=== PATIENT | male | born 1990 | race African-American/Black ===

== ENCOUNTER 2024-07-25 15:31 | Inpatient (IN) | payer MEDICAID, OTHER ==
[~2024-07-25] VITALS: Ht 160 cm; Wt 57.3 kg
[~2024-07-25 15:31] MED LIST: CLOZ100T12 PO; DIVA-153 PO; DIVA500T69 PO; QUET300T2 PO
[2024-07-25 17:00] VITALS: O2SAT 97
[2024-07-25 17:06] LABS: BASOPHILS % (AUTO) 0.8 % (0.0-2.0); EOSINOPHILS % (AUTO) 3.3 % (1.0-6.0); HEMATOCRIT 38.5 % (41-53); HEMOGLOBIN 12.4 g/dL (13.5-17.5); LYMPHOCYTES # (AUTO) 2.9 K/uL (1.0-4.8); LYMPHOCYTES % (AUTO) 47.3 % (22.0-44.0); MEAN CORPUSCULAR HGB CONC 32.2 G/dL (31.0-37.0); MEAN CORPUSCULAR VOLUME 72 fL (80-100); MONOCYTES # (AUTO) 0.5 K/uL (0.1-1.0); MONOCYTES % (AUTO) 7.7 % (2.0-9.0); NEUTROPHILS # (AUTO) 2.5 K/uL (1.8-7.7); NEUTROPHILS % (AUTO) 40.9 % (40.0-70.0); PLATELET COUNT (AUTO) 402 K/uL (150-450); RED BLOOD CELL COUNT(AUTO) 5.38 MIL/uL (4.50-5.90); RED CELL DISTRIBUTION WIDTH 15.1 % (11.5-14.5); WHITE BLOOD COUNT (AUTO) 6.1 K/uL (4.5-11.0)
[2024-07-25 17:09] LABS: COVID AG,FIA SOURCE NASAL SWAB
[2024-07-25 17:17] LABS: ANION GAP 9 mmol/L (8-16); CALCIUM, TOTAL 9.6 mg/dL (8.8-10.5); CARBON DIOXIDE 29 mmol/L (22-29); CHLORIDE 104 mmol/L (98-107); CREATININE 0.97 mg/dL (0.60-1.30); GLOMERULAR FILTR. RATE CALC > 60 mL/min (>60); GLUCOSE,RANDOM 212 mg/dL (70-110); POTASSIUM 3.9 mmol/L (3.5-5.1); SODIUM SERUM 142 mmol/L (136-145); UREA NITROGEN, BLOOD 5 mg/dL (7-18)
[2024-07-25 17:28] LABS: SARS-COV2 (COVID) ANTIGEN,FIA Negative (Negative)
[2024-07-25] MEDS ORDERED: BETA15CR TP (17:31)
[2024-07-25] MEDS ORDERED: TRAZ-252 PO (17:31)
[2024-07-25] MEDS ORDERED: INSU100I94 SQ (17:31)
[2024-07-25] MEDS ORDERED: KETO120S13 TP (17:31)
[2024-07-25] MEDS ORDERED: METO25 PO (17:31)
[2024-07-25] MEDS ORDERED: LITH600C PO (17:31)
[2024-07-25] MEDS ORDERED: QUET200T30 PO (17:31)
[2024-07-25] MEDS ORDERED: METF-446 PO (17:31)
[2024-07-25 17:32] LABS: RBC MORPHOLOGY COMMENT ABNORMAL RBC MORPH
[2024-07-25 18:10] LABS: ALCOHOL, BLOOD (SERUM) < 3 mg/dL (0-10)
[2024-07-25] MEDS ORDERED: CLOZ25TA52 PO (18:21)
[2024-07-25 18:39] LABS: ALCOHOL, URINE DRUG SCREEN NEGATIVE (NEGATIVE); AMPHET/METH SCREEN,URINE POSITIVE (NEGATIVE); BARBITURATE SCREEN, URINE NEGATIVE (NEGATIVE); BENZODIAZEPINES SCREEN,URINE NEGATIVE (NEGATIVE); CANNABINOID SCREEN,URINE POSITIVE (NEGATIVE); COCAINE SCREEN,URINE NEGATIVE (NEGATIVE); METHADONE SCREEN, URINE NEGATIVE (NEGATIVE); OPIATE SCREEN,URINE NEGATIVE (NEGATIVE); PHENCYCLIDINE SCREEN,URINE NEGATIVE (NEGATIVE)
[2024-07-25] MEDS: LORazepam 1 MG TABLET PO ONE (18:42)
[2024-07-25] MEDS: ACETAMINOPHEN 325 MG TABLET PO ONE (18:59)
[2024-07-25] MEDS ORDERED: LORazepam 2 MG TABLET PO PRN (19:00)
[2024-07-25] MEDS ORDERED: HALOPERIDOL 5 MG TABLET PO PRN (19:00)
[2024-07-25 23:30] VITALS: RESP 16
[2024-07-25] MEDS ORDERED: DEXTROSE 50%-WATER 25 GM/50 ML SYRINGE IVP PRN (23:30)
[2024-07-25] MEDS ORDERED: INSULIN LISPRO 100 UNITS/ML SQ PRN (23:30)
[2024-07-25] MEDS ORDERED: GLUCAGON,HUMAN RECOMBINANT 1 MG VIAL IM PRN (23:45)
[2024-07-26 08:07] VITALS: BP 129/97; PULSE 89; RESP 18; TEMP 98.2; O2SAT 95
[2024-07-26] MEDS ORDERED: MAGNESIUM HYDROXIDE SUSPENSION 30 ML UDCUP PO PRN (09:30)
[2024-07-26] MEDS ORDERED: DOCUSATE SODIUM 100 MG CAPSULE PO PRN (09:30)
[2024-07-26] MEDS ORDERED: ONDANSETRON 4 MG TABLET PO PRN (09:30)
[2024-07-26] MEDS ORDERED: LOPERAMIDE HCL 2 MG CAPSULE PO PRN (09:30)
[2024-07-26] MEDS ORDERED: GuaiFENesin/D-METHORPHAN [SUGAR-FREE] 200-20MG/10 ML SYRUP UDCUP PO PRN (09:30)
[2024-07-26] MEDS ORDERED: ALBUTEROL SULFATE HFA 90 MCG/PUFF 8 GM INHALER IH PRN (09:30)
[2024-07-26] MEDS: INSULIN LISPRO 100 UNITS/ML SQ PRN (11:14)
[2024-07-26 11:31] LABS: GLUCOMETER DEV NAME(LOC) BV2S.; GLUCOSE,POINT OF CARE 261 MG/DL (70-110)
[2024-07-26] MEDS: LITHIUM CARBONATE 300 MG ER TABLET PO SCH (13:20)
[2024-07-26] MEDS: DiphenhydrAMINE HCL 50 MG/ML VIAL IM ONE (13:21)
[2024-07-26] MEDS: LORazepam 2 MG/ML VIAL IM ONE (13:22)
[2024-07-26] MEDS: HALOPERIDOL LACTATE 5 MG/ML VIAL IM ONE (13:24)
[2024-07-26 15:00] VITALS: BP 139/93; PULSE 98; RESP 18; TEMP 98; O2SAT 100
[2024-07-26] MEDS: CloZAPine 25 MG TABLET PO SCH (16:27)
[2024-07-26] MEDS: MetFORMIN HCL 500 MG TABLET PO SCH (16:28)
[2024-07-26] MEDS: METOPROLOL TARTRATE 25 MG TABLET PO SCH (16:29)
[2024-07-26] MEDS: QUEtiapine FUMARATE 200 MG TABLET PO SCH (16:30)
[2024-07-26 17:06] LABS: GLUCOMETER DEV NAME(LOC) BV3N.2; GLUCOSE,POINT OF CARE 246 MG/DL (70-110)
[2024-07-26 20:00] VITALS: RESP 18
[2024-07-26] MEDS: TraZODone HCL 50 MG TABLET PO SCH (20:24)
[2024-07-26] MEDS: CloZAPine 100 MG TABLET PO SCH (20:25)
[2024-07-26] MEDS: DIVALPROEX SODIUM 500 MG ER TABLET PO SCH (20:25)
[2024-07-26] MEDS: INSULIN GLARGINE,HUM.REC.ANLOG 100 UNITS/ML SQ SCH (20:39)
[2024-07-26] MEDS: ZOLPIDEM TARTRATE 10 MG TABLET PO PRN (20:47)
[2024-07-26 20:55] LABS: GLUCOMETER DEV NAME(LOC) BV3N.2; GLUCOSE,POINT OF CARE 198 MG/DL (70-110)
[2024-07-27 06:50] LABS: GLUCOMETER DEV NAME(LOC) BV3N.2; GLUCOSE,POINT OF CARE 159 MG/DL (70-110)
[2024-07-27 09:30] LABS: HEMOGLOBIN A1C 7.3 % (3.8-5.6)
[2024-07-27 09:53] LABS: CHOL/HDL RATIO 2.7 (4.2-7.3); FREE T4 (FREE THYROXINE) 1.02 ng/dL (0.76-1.46)
[2024-07-27] MEDS: PETROLATUM,WHITE 28 GM JELLY TP PRN (09:59)
[2024-07-27] MEDS: NICOTINE 14 MG/24 HOUR PATCH TD PRN (10:02)
[2024-07-27 10:17] LABS: THYROID STIMULATING HORMONE 0.11 uIU/mL (0.36-3.74)
[2024-07-27 16:00] VITALS: BP 125/79; PULSE 100; RESP 18; TEMP 97.7; O2SAT 95
[2024-07-27 17:00] LABS: GLUCOMETER DEV NAME(LOC) BV3N.2; GLUCOSE,POINT OF CARE 225 MG/DL (70-110)
[2024-07-27 17:00] LABS: GLUCOMETER DEV NAME(LOC) BV3N.2; GLUCOSE,POINT OF CARE 222 MG/DL (70-110)
[2024-07-27] MEDS: MAG HYDROX/ALUMINUM HYD/SIMETH ES 30 ML SUSPENSION UDCUP PO PRN (17:05)
[2024-07-27 20:15] VITALS: RESP 18
[2024-07-27 20:50] LABS: GLUCOMETER DEV NAME(LOC) BV3N.2; GLUCOSE,POINT OF CARE 153 MG/DL (70-110)
[2024-07-28 06:06] LABS: HEPATITIS C AB (EIA) Non Reactive (Non Reactive)
[2024-07-28 06:41] LABS: GLUCOMETER DEV NAME(LOC) BV3N.2; GLUCOSE,POINT OF CARE 127 MG/DL (70-110)
[2024-07-28 09:17] VITALS: BP 116/59; PULSE 93; RESP 18; TEMP 97.2; O2SAT 96
[2024-07-28 09:24] VITALS: RESP 16
[2024-07-28] MEDS: ACETAMINOPHEN 325 MG TABLET PO PRN (09:24)
[2024-07-28 10:24] VITALS: RESP 16
[2024-07-28 11:31] LABS: GLUCOMETER DEV NAME(LOC) BV3N.2; GLUCOSE,POINT OF CARE 284 MG/DL (70-110)
[2024-07-28 16:00] VITALS: BP 129/75; PULSE 63; RESP 18; TEMP 97.6
[2024-07-28 16:41] LABS: GLUCOMETER DEV NAME(LOC) BV3N.2; GLUCOSE,POINT OF CARE 315 MG/DL (70-110)
[2024-07-28 19:41] LABS: GLUCOMETER DEV NAME(LOC) BV3N.2; GLUCOSE,POINT OF CARE 126 MG/DL (70-110)
[2024-07-28 20:58] VITALS: BP 126/64; PULSE 93; RESP 16; TEMP 97.7; O2SAT 98
[2024-07-29 06:30] LABS: GLUCOMETER DEV NAME(LOC) BV3N.2; GLUCOSE,POINT OF CARE 265 MG/DL (70-110)
[2024-07-29 08:29] VITALS: BP 108/62; PULSE 98; RESP 16; TEMP 98; O2SAT 98
[2024-07-29 08:40] LABS: APPEARANCE,URINE CLEAR (CLEAR); BILIRUBIN,URINE NEGATIVE (NEGATIVE); COLOR,URINE LIGHT YELLOW (YELLOW); GLUCOSE, URINE (UA) >=1000 mg/dL (NEGATIVE); KETONES,URINE NEGATIVE (NEGATIVE); LEUKOCYTE ESTERASE ,URINE NEGATIVE (NEGATIVE); NITRATE,URINE NEGATIVE (NEGATIVE); OCCULT BLOOD,URINE NEGATIVE (NEGATIVE); PROTEIN,URINE NEGATIVE (NEGATIVE); SPECIFIC GRAVITIY, URINE 1.011 (1.003-1.030); UROBILINOGEN,URINE <=1.0 mg/dL (<=1.0)
[2024-07-29 09:03] LABS: BACTERIA,URINE None Seen /HPF (None Seen); RBC,URINE None Seen /HPF (0-2); SQUAMOUS EPITHELIAL CELL,UR Rare /LPF (None Seen); WBC,URINE None Seen /HPF (0-5)
[2024-07-29 16:36] LABS: GLUCOMETER DEV NAME(LOC) BV3N.2; GLUCOSE,POINT OF CARE 320 MG/DL (70-110)
[2024-07-29 16:36] LABS: GLUCOMETER DEV NAME(LOC) BV3N.2; GLUCOSE,POINT OF CARE 284 MG/DL (70-110)
[2024-07-29 19:46] LABS: GLUCOMETER DEV NAME(LOC) BV3N.2; GLUCOSE,POINT OF CARE 181 MG/DL (70-110)
[2024-07-29 20:03] VITALS: BP 135/76; PULSE 94; RESP 17; TEMP 98.3; O2SAT 95
[2024-07-30 06:25] LABS: GLUCOMETER DEV NAME(LOC) BV3N.2; GLUCOSE,POINT OF CARE 199 MG/DL (70-110)
[2024-07-30 08:22] VITALS: BP 116/69; RESP 15; TEMP 98; O2SAT 97
[2024-07-30 16:40] LABS: GLUCOMETER DEV NAME(LOC) BV3N.2; GLUCOSE,POINT OF CARE 333 MG/DL (70-110)
[2024-07-30 20:14] VITALS: BP 114/56; PULSE 79; RESP 16; TEMP 97.4; O2SAT 97
[2024-07-30 21:00] LABS: GLUCOMETER DEV NAME(LOC) BV3N.2; GLUCOSE,POINT OF CARE 232 MG/DL (70-110)
[2024-07-31 06:20] LABS: GLUCOMETER DEV NAME(LOC) BV3N.2; GLUCOSE,POINT OF CARE 187 MG/DL (70-110)
[2024-07-31 08:08] LABS: LITHIUM 0.28 mmol/L (0.60-1.20)
[2024-07-31 08:32] VITALS: BP 118/66; RESP 16; TEMP 97.6; O2SAT 97
[2024-07-31 11:56] LABS: GLUCOMETER DEV NAME(LOC) BV3N.2; GLUCOSE,POINT OF CARE 290 MG/DL (70-110)
[2024-07-31] MEDS ORDERED: TUBERCULIN, PURIFIED PROTEIN DERIVATIVE 5 TU/0.1 ML SYRINGE ID ONE (13:30)
[2024-07-31 17:01] LABS: GLUCOMETER DEV NAME(LOC) BV3N.2; GLUCOSE,POINT OF CARE 229 MG/DL (70-110)
[2024-07-31 21:21] LABS: GLUCOMETER DEV NAME(LOC) BV3N.2; GLUCOSE,POINT OF CARE 194 MG/DL (70-110)
[2024-08-01 06:46] LABS: GLUCOMETER DEV NAME(LOC) BV3N.2; GLUCOSE,POINT OF CARE 201 MG/DL (70-110)
[2024-08-01 09:13] VITALS: BP 113/60; PULSE 108; RESP 17; TEMP 97.8; O2SAT 96
[2024-08-01 11:50] LABS: GLUCOMETER DEV NAME(LOC) BV3N.2; GLUCOSE,POINT OF CARE 291 MG/DL (70-110)
[2024-08-01 16:10] VITALS: BP 128/68; PULSE 64; RESP 18; O2SAT 98
[2024-08-01 16:40] LABS: GLUCOMETER DEV NAME(LOC) BV3N.2; GLUCOSE,POINT OF CARE 330 MG/DL (70-110)
[2024-08-01] MEDS: TUBERCULIN, PURIFIED PROTEIN DERIVATIVE 5 TU/0.1 ML SYRINGE ID ONE (17:00)
[2024-08-01 20:10] VITALS: BP 104/53; PULSE 94; RESP 18; TEMP 98; O2SAT 98
[2024-08-01 21:00] LABS: GLUCOMETER DEV NAME(LOC) BV3N.2; GLUCOSE,POINT OF CARE 209 MG/DL (70-110)
[2024-08-02 06:36] LABS: GLUCOMETER DEV NAME(LOC) BV3N.2; GLUCOSE,POINT OF CARE 208 MG/DL (70-110)
[2024-08-02 08:05] VITALS: BP 122/65; PULSE 76; RESP 16; TEMP 98.5; O2SAT 96
[2024-08-02 11:30] LABS: GLUCOMETER DEV NAME(LOC) BV3N.2; GLUCOSE,POINT OF CARE 239 MG/DL (70-110)
[2024-08-02 17:00] LABS: GLUCOMETER DEV NAME(LOC) BV3N.2; GLUCOSE,POINT OF CARE 329 MG/DL (70-110)
[2024-08-02 20:10] VITALS: BP 129/86; PULSE 92; RESP 18; TEMP 97.3
[2024-08-03 07:10] LABS: GLUCOMETER DEV NAME(LOC) BV3N.2; GLUCOSE,POINT OF CARE 187 MG/DL (70-110)
[2024-08-03 07:10] LABS: GLUCOMETER DEV NAME(LOC) BV3N.2; GLUCOSE,POINT OF CARE 224 MG/DL (70-110)
[2024-08-03 08:09] VITALS: BP 103/60; PULSE 91; RESP 17; TEMP 97.4; O2SAT 99
[2024-08-03 11:31] LABS: GLUCOMETER DEV NAME(LOC) BV3N.2; GLUCOSE,POINT OF CARE 326 MG/DL (70-110)
[2024-08-03 20:36] VITALS: BP 117/64; PULSE 97; RESP 18; TEMP 97.2; O2SAT 97
[2024-08-03 22:21] LABS: GLUCOMETER DEV NAME(LOC) BV3N.2; GLUCOSE,POINT OF CARE 243 MG/DL (70-110)
[2024-08-04 06:30] LABS: GLUCOMETER DEV NAME(LOC) BV3N.2; GLUCOSE,POINT OF CARE 206 MG/DL (70-110)
[2024-08-04 08:02] VITALS: RESP 15
[2024-08-04] MEDS: QUEtiapine FUMARATE 300 MG TABLET PO SCH (08:14)
[2024-08-04 15:20] VITALS: RESP 15
[2024-08-04 17:25] LABS: GLUCOMETER DEV NAME(LOC) BV3N.2; GLUCOSE,POINT OF CARE 243 MG/DL (70-110)
[2024-08-04 17:25] LABS: GLUCOMETER DEV NAME(LOC) BV3N.2; GLUCOSE,POINT OF CARE 346 MG/DL (70-110)
[2024-08-04 20:24] VITALS: BP 129/68; PULSE 95; RESP 18; TEMP 98
[2024-08-04 21:00] LABS: GLUCOMETER DEV NAME(LOC) BV3N.2; GLUCOSE,POINT OF CARE 99 MG/DL (70-110)
[2024-08-05 07:15] LABS: GLUCOMETER DEV NAME(LOC) BV3N.2; GLUCOSE,POINT OF CARE 242 MG/DL (70-110)
[2024-08-05 08:17] LABS: PLATELET COUNT (AUTO) 368 K/uL (150-450)
[2024-08-05 08:29] VITALS: BP 118/60; PULSE 95; RESP 17; TEMP 97.7; O2SAT 100
[2024-08-05 08:36] LABS: HEMATOCRIT 37.7 % (41-53); HEMOGLOBIN 12.2 g/dL (13.5-17.5); MEAN CORPUSCULAR HGB CONC 32.2 G/dL (31.0-37.0); MEAN CORPUSCULAR VOLUME 71 fL (80-100); RED BLOOD CELL COUNT(AUTO) 5.29 MIL/uL (4.50-5.90); RED CELL DISTRIBUTION WIDTH 15.5 % (11.5-14.5); WHITE BLOOD COUNT (AUTO) 8.9 K/uL (4.5-11.0)
[2024-08-05 10:07] LABS: BAND NEUTROPHILS % (MANUAL) 1 % (0-5); LYMPHOCYTES % (MANUAL) 32 % (22-44); MONOCYTES % (MANUAL) 8 % (2-9); SEGMENTED NEUTROPHILS % 59 % (40-70); TOTAL CELLS COUNTED 100
[2024-08-05 11:40] LABS: GLUCOMETER DEV NAME(LOC) BV3N.2; GLUCOSE,POINT OF CARE 264 MG/DL (70-110)
[2024-08-05 17:51] LABS: GLUCOMETER DEV NAME(LOC) BV3N.2; GLUCOSE,POINT OF CARE 314 MG/DL (70-110)
[2024-08-05 20:32] VITALS: BP 120/63; PULSE 88; RESP 18; TEMP 98.1; O2SAT 96
[2024-08-05 21:50] LABS: GLUCOMETER DEV NAME(LOC) BV3N.2; GLUCOSE,POINT OF CARE 285 MG/DL (70-110)
[2024-08-06 06:41] LABS: GLUCOMETER DEV NAME(LOC) BV3N.2; GLUCOSE,POINT OF CARE 211 MG/DL (70-110)
[2024-08-06 08:42] VITALS: BP 116/67; PULSE 100; RESP 18; TEMP 97.5; O2SAT 97
[2024-08-06 12:00] LABS: GLUCOMETER DEV NAME(LOC) BV3N.2; GLUCOSE,POINT OF CARE 246 MG/DL (70-110)
[2024-08-06 17:20] LABS: GLUCOMETER DEV NAME(LOC) BV3N.2; GLUCOSE,POINT OF CARE 272 MG/DL (70-110)
[2024-08-06 20:03] VITALS: BP 117/65; PULSE 87; RESP 17; TEMP 98.7
[2024-08-06 21:10] LABS: GLUCOMETER DEV NAME(LOC) BV2S.; GLUCOSE,POINT OF CARE 152 MG/DL (70-110)
[2024-08-07 08:23] VITALS: RESP 18
[2024-08-07 09:00] VITALS: BP 113/69; PULSE 100; RESP 18; TEMP 97.4
[2024-08-07 09:07] LABS: CALCIUM, TOTAL 9.5 mg/dL (8.8-10.5); CARBON DIOXIDE 28 mmol/L (22-29); CREATININE 0.76 mg/dL (0.60-1.30); GLOMERULAR FILTR. RATE CALC > 60 mL/min (>60); GLUCOSE,RANDOM 159 mg/dL (70-110); UREA NITROGEN, BLOOD 10 mg/dL (7-18)
[2024-08-07 09:40] LABS: ANION GAP 6 mmol/L (8-16); CHLORIDE 104 mmol/L (98-107); POTASSIUM 4.7 mmol/L (3.5-5.1); SODIUM SERUM 138 mmol/L (136-145)
[2024-08-07 11:45] LABS: GLUCOMETER DEV NAME(LOC) BV2S.; GLUCOSE,POINT OF CARE 198 MG/DL (70-110)
[2024-08-07] MEDS: CloZAPine 100 MG TABLET PO SCH (16:46)
[2024-08-07 17:00] LABS: GLUCOMETER DEV NAME(LOC) BV2S.; GLUCOSE,POINT OF CARE 173 MG/DL (70-110)
[2024-08-07 20:18] VITALS: BP 118/60; PULSE 92; RESP 16; TEMP 98.4; O2SAT 96
[2024-08-07 20:40] LABS: GLUCOMETER DEV NAME(LOC) BV2S.; GLUCOSE,POINT OF CARE 174 MG/DL (70-110)
[2024-08-08 08:59] VITALS: BP 108/58; PULSE 93; RESP 17; TEMP 98.6; O2SAT 98
[2024-08-08 12:10] LABS: GLUCOMETER DEV NAME(LOC) BV2S.; GLUCOSE,POINT OF CARE 218 MG/DL (70-110)
[2024-08-08 16:50] LABS: GLUCOMETER DEV NAME(LOC) BV2S.; GLUCOSE,POINT OF CARE 206 MG/DL (70-110)
[2024-08-08 20:30] VITALS: BP 128/74; PULSE 80; RESP 16; TEMP 99.7; O2SAT 97
[2024-08-08 20:50] VITALS: RESP 16; O2SAT 97
[2024-08-08 21:05] LABS: GLUCOMETER DEV NAME(LOC) BV2S.; GLUCOSE,POINT OF CARE 145 MG/DL (70-110)
[2024-08-09 06:26] LABS: GLUCOMETER DEV NAME(LOC) BV2S.; GLUCOSE,POINT OF CARE 142 MG/DL (70-110)
[2024-08-09 12:21] LABS: GLUCOMETER DEV NAME(LOC) BV2S.; GLUCOSE,POINT OF CARE 187 MG/DL (70-110)
[2024-08-09 13:24] VITALS: BP 119/74; PULSE 73; RESP 17; TEMP 97.4; O2SAT 96
[2024-08-09 17:01] VITALS: BP 104/61; PULSE 99; RESP 18
[2024-08-09 17:21] LABS: GLUCOMETER DEV NAME(LOC) BV2S.; GLUCOSE,POINT OF CARE 192 MG/DL (70-110)
[2024-08-09 20:25] VITALS: BP 108/65; PULSE 99; RESP 18; TEMP 97.8; O2SAT 98
[2024-08-09 21:00] LABS: GLUCOMETER DEV NAME(LOC) BV2S.; GLUCOSE,POINT OF CARE 191 MG/DL (70-110)
[2024-08-10 07:01] LABS: GLUCOMETER DEV NAME(LOC) BV2S.; GLUCOSE,POINT OF CARE 156 MG/DL (70-110)
[2024-08-10 08:00] VITALS: BP 116/61; PULSE 85; RESP 17; TEMP 98.7; O2SAT 98
[2024-08-10 12:01] LABS: GLUCOMETER DEV NAME(LOC) BV2S.; GLUCOSE,POINT OF CARE 165 MG/DL (70-110)
[2024-08-10 17:49] VITALS: RESP 18; O2SAT 98
[2024-08-10 17:51] LABS: GLUCOMETER DEV NAME(LOC) BV2S.; GLUCOSE,POINT OF CARE 175 MG/DL (70-110)
[2024-08-10 18:49] VITALS: RESP 17; O2SAT 97
[2024-08-10 20:20] VITALS: RESP 18
[2024-08-10] MEDS: IBUPROFEN 400 MG TABLET PO PRN (20:20)
[2024-08-10 20:56] VITALS: BP 114/65; PULSE 91; RESP 16; TEMP 99.3; O2SAT 96
[2024-08-10 21:20] VITALS: RESP 16
[2024-08-10 21:21] LABS: GLUCOMETER DEV NAME(LOC) BV2S.; GLUCOSE,POINT OF CARE 153 MG/DL (70-110)
[2024-08-11 07:26] LABS: GLUCOMETER DEV NAME(LOC) BV2S.; GLUCOSE,POINT OF CARE 152 MG/DL (70-110)
[2024-08-11 08:25] VITALS: BP 113/58; PULSE 86; RESP 16; TEMP 98.8; O2SAT 100
[2024-08-11 08:43] LABS: BASOPHILS % (AUTO) 0.8 % (0.0-2.0); EOSINOPHILS % (AUTO) 4.4 % (1.0-6.0); HEMATOCRIT 40.1 % (41-53); HEMOGLOBIN 12.6 g/dL (13.5-17.5); LYMPHOCYTES # (AUTO) 2.9 K/uL (1.0-4.8); LYMPHOCYTES % (AUTO) 31.1 % (22.0-44.0); MEAN CORPUSCULAR HEMOGLOBIN 22.5 pg (26.0-34.0); MEAN CORPUSCULAR HGB CONC 31.5 G/dL (31.0-37.0); MEAN CORPUSCULAR VOLUME 72 fL (80-100); MONOCYTES # (AUTO) 0.8 K/uL (0.1-1.0); MONOCYTES % (AUTO) 8.5 % (2.0-9.0); NEUTROPHILS # (AUTO) 5.1 K/uL (1.8-7.7); NEUTROPHILS % (AUTO) 55.2 % (40.0-70.0); PLATELET COUNT (AUTO) 279 K/uL (150-450); RED BLOOD CELL COUNT(AUTO) 5.61 MIL/uL (4.50-5.90); RED CELL DISTRIBUTION WIDTH 15.6 % (11.5-14.5); WHITE BLOOD COUNT (AUTO) 9.3 K/uL (4.5-11.0)
[2024-08-11 08:44] LABS: RBC MORPHOLOGY COMMENT ABNORMAL RBC MORPH
[2024-08-11 14:05] LABS: GLUCOMETER DEV NAME(LOC) BV2S.; GLUCOSE,POINT OF CARE 154 MG/DL (70-110)
[2024-08-11 17:16] LABS: GLUCOMETER DEV NAME(LOC) BV2S.; GLUCOSE,POINT OF CARE 189 MG/DL (70-110)
[2024-08-11 20:00] VITALS: BP 115/56; PULSE 88; RESP 17; TEMP 98.4; O2SAT 99
[2024-08-11 20:00] LABS: GLUCOMETER DEV NAME(LOC) BV2S.; GLUCOSE,POINT OF CARE 121 MG/DL (70-110)
[2024-08-12 08:14] VITALS: BP 104/58; PULSE 89; RESP 17; TEMP 99.5; O2SAT 96
[2024-08-12 09:06] VITALS: BP 140/79; PULSE 87; RESP 17; O2SAT 96
[2024-08-12 11:45] LABS: GLUCOMETER DEV NAME(LOC) BV2S.; GLUCOSE,POINT OF CARE 161 MG/DL (70-110)
[2024-08-12 16:38] VITALS: RESP 16
[2024-08-12 20:42] VITALS: BP 110/59; PULSE 80; RESP 18; TEMP 97.3; O2SAT 99
[2024-08-12 22:00] LABS: GLUCOMETER DEV NAME(LOC) BV2S.; GLUCOSE,POINT OF CARE 241 MG/DL (70-110)
[2024-08-13 06:41] LABS: GLUCOMETER DEV NAME(LOC) BV2S.; GLUCOSE,POINT OF CARE 228 MG/DL (70-110)
[2024-08-13 09:06] VITALS: BP 125/68; PULSE 88; RESP 17; TEMP 97.9; O2SAT 100
[2024-08-13 12:05] LABS: GLUCOMETER DEV NAME(LOC) BV2S.; GLUCOSE,POINT OF CARE 138 MG/DL (70-110)
[2024-08-13 17:20] LABS: GLUCOMETER DEV NAME(LOC) BV2S.; GLUCOSE,POINT OF CARE 301 MG/DL (70-110)
[2024-08-13 20:00] VITALS: BP 100/56; PULSE 78; RESP 16; TEMP 98.4; O2SAT 95
[2024-08-13 20:06] LABS: GLUCOMETER DEV NAME(LOC) BV2S.; GLUCOSE,POINT OF CARE 217 MG/DL (70-110)
[2024-08-14 08:46] VITALS: BP 110/59; PULSE 76; RESP 17; TEMP 98.3; O2SAT 97
[2024-08-14 09:16] LABS: GLUCOMETER DEV NAME(LOC) BV2S.; GLUCOSE,POINT OF CARE 206 MG/DL (70-110)
[2024-08-14 12:21] LABS: GLUCOMETER DEV NAME(LOC) BV2S.; GLUCOSE,POINT OF CARE 158 MG/DL (70-110)
[2024-08-14 17:11] LABS: GLUCOMETER DEV NAME(LOC) BV2S.; GLUCOSE,POINT OF CARE 191 MG/DL (70-110)
[2024-08-14 20:15] VITALS: BP 141/75; PULSE 83; RESP 16; TEMP 98.1; O2SAT 95
[2024-08-14 21:45] LABS: GLUCOMETER DEV NAME(LOC) BV2S.; GLUCOSE,POINT OF CARE 249 MG/DL (70-110)
[2024-08-15 06:50] LABS: GLUCOMETER DEV NAME(LOC) BV2S.; GLUCOSE,POINT OF CARE 203 MG/DL (70-110)
[2024-08-15 08:52] VITALS: BP 122/69; PULSE 90; RESP 16; TEMP 98.4; O2SAT 97
[2024-08-15 12:00] LABS: GLUCOMETER DEV NAME(LOC) BV2S.; GLUCOSE,POINT OF CARE 174 MG/DL (70-110)
[2024-08-15 16:36] VITALS: BP 123/66
[2024-08-15 17:05] LABS: GLUCOMETER DEV NAME(LOC) BV2S.; GLUCOSE,POINT OF CARE 183 MG/DL (70-110)
[2024-08-15 21:07] VITALS: BP 116/59; PULSE 91; RESP 18; TEMP 98.6; O2SAT 98
[2024-08-16 06:20] LABS: GLUCOMETER DEV NAME(LOC) BV2S.; GLUCOSE,POINT OF CARE 238 MG/DL (70-110)
[2024-08-16 08:05] VITALS: RESP 16
[2024-08-16 17:36] LABS: GLUCOMETER DEV NAME(LOC) BV2S.; GLUCOSE,POINT OF CARE 97 MG/DL (70-110)
[2024-08-16 17:36] LABS: GLUCOMETER DEV NAME(LOC) BV2S.; GLUCOSE,POINT OF CARE 173 MG/DL (70-110)
[2024-08-16 21:12] VITALS: BP 120/60; PULSE 82; RESP 19; TEMP 98.6; O2SAT 100
[2024-08-16 21:31] LABS: GLUCOMETER DEV NAME(LOC) BV2S.; GLUCOSE,POINT OF CARE 244 MG/DL (70-110)
[2024-08-17 06:31] LABS: GLUCOMETER DEV NAME(LOC) BV2S.; GLUCOSE,POINT OF CARE 212 MG/DL (70-110)
[2024-08-17 08:15] VITALS: BP 94/52; PULSE 73; RESP 17; TEMP 97.7; O2SAT 96
[2024-08-17 11:46] LABS: GLUCOMETER DEV NAME(LOC) BV2S.; GLUCOSE,POINT OF CARE 335 MG/DL (70-110)
[2024-08-17] MEDS ORDERED: INSLAN SQ (11:49)
[2024-08-17] MEDS ORDERED: LITH300T45 PO (11:49)
[2024-08-17] MEDS ORDERED: CLOZ100T61 PO ×2 (11:49)
[2024-08-17] MEDS ORDERED: QUET300T19 PO (11:49)
[2024-08-17] MEDS ORDERED: DIVA-153 PO (11:49)
[2024-08-17] MEDS ORDERED: METO25 PO (11:49)
[2024-08-17] MEDS ORDERED: TRAZ-252 PO (11:49)
[2024-08-17] MEDS ORDERED: METF-1211 PO (11:49)
[2024-08-17 16:26] VITALS: BP 127/71
[2024-08-17 16:46] LABS: GLUCOMETER DEV NAME(LOC) BV2S.; GLUCOSE,POINT OF CARE 269 MG/DL (70-110)
[2024-08-17 17:26] VITALS: RESP 17; O2SAT 96
[2024-08-17 18:19] VITALS: BP 121/78; PULSE 96; RESP 18; TEMP 97.5; O2SAT 98
[2024-08-17 21:25] LABS: GLUCOMETER DEV NAME(LOC) BV2S.; GLUCOSE,POINT OF CARE 273 MG/DL (70-110)
[2024-08-18 08:40] VITALS: BP 92/52; PULSE 91; RESP 18; TEMP 97.5; O2SAT 98
[2024-08-18 09:00] LABS: BASOPHILS % (AUTO) 0.5 % (0.0-2.0); EOSINOPHILS % (AUTO) 8.1 % (1.0-6.0); HEMATOCRIT 38.8 % (41-53); HEMOGLOBIN 12.4 g/dL (13.5-17.5); LYMPHOCYTES # (AUTO) 2.8 K/uL (1.0-4.8); LYMPHOCYTES % (AUTO) 27.3 % (22.0-44.0); MEAN CORPUSCULAR HEMOGLOBIN 22.8 pg (26.0-34.0); MEAN CORPUSCULAR HGB CONC 32.1 G/dL (31.0-37.0); MEAN CORPUSCULAR VOLUME 71 fL (80-100); MONOCYTES % (AUTO) 9.9 % (2.0-9.0); NEUTROPHILS # (AUTO) 5.7 K/uL (1.8-7.7); NEUTROPHILS % (AUTO) 54.2 % (40.0-70.0); PLATELET COUNT (AUTO) 248 K/uL (150-450); RED BLOOD CELL COUNT(AUTO) 5.46 MIL/uL (4.50-5.90); RED CELL DISTRIBUTION WIDTH 15.9 % (11.5-14.5); WHITE BLOOD COUNT (AUTO) 10.4 K/uL (4.5-11.0)
[2024-08-18 09:12] LABS: RBC MORPHOLOGY COMMENT ABNORMAL RBC MORPH
[2024-08-18 09:52] VITALS: RESP 17; O2SAT 98
[2024-08-18 11:45] LABS: GLUCOMETER DEV NAME(LOC) BV2S.; GLUCOSE,POINT OF CARE 384 MG/DL (70-110)
== END 2024-08-18 14:48 | disposition home or self-care (01) | DRG 750 ==
LOC: EMS 15:31 → B2S 20:42 → B3A 07-26 15:13 → B2S 08-06 17:38
PROVIDERS: ADMIT Psychiatry & Neurology Child & Adolescent Psychiatry; ATTEND Psychiatry & Neurology Child & Adolescent Psychiatry
PROC: GZ56ZZZ Individual Psychotherapy, Supportive (ICD-10-PCS; principal; 2024-07-26)
PROC: GZHZZZZ Group Psychotherapy (ICD-10-PCS; 2024-07-26)
PROC: GZ58ZZZ Individual Psychotherapy, Cognitive-Behavioral (ICD-10-PCS; 2024-07-26)
DX: F25.0 Schizoaffective disorder, bipolar type (principal); D64.9 Anemia, unspecified; Z91.148 Patient's other noncompliance with medication regimen for other reason; E11.65 Type 2 diabetes mellitus with hyperglycemia; F12.10 Cannabis abuse, uncomplicated; F15.10 Other stimulant abuse, uncomplicated; G47.00 Insomnia, unspecified; I10 Essential (primary) hypertension; Z79.899 Other long term (current) drug therapy; Z91.018 Allergy to other foods
CPT/HCPCS: 80048; 80061; 80164; 80178; 80307; 81001; 82962; 83036; 84439; 84443; 85025; 86803; 87340; 99285; G0480; J1200; J1630; J1815; J2060